=== PATIENT | male | born 1940 | race Caucasian/White ===

== ENCOUNTER 2019-04-24 05:29 | Emergency (ER) | payer MEDICARE, BC ==
[~2019-04-24] VITALS: Ht 182.9 cm; Wt 79.4 kg
--- NOTE | 2019-04-24 05:55 | EKG ---
[facility] [address] [place] [address] Test Date: 2019-04-24 Test Time: 05:36:45 Pat Name: GIDEON HARDING Department: Room: Gender: M Restaurant Crew Member: : 1940 Requested By: SURINDER MARTINEZ Order Number: [id number] Reading MD: Measurements Intervals [place] Rate: 68 P: 56 NM: 194 QRS: 2 QRSD: 90 T: 67 QT: 396 QTc: 425 Interpretive Statements SINUS RHYTHM LOW LIMB LEAD VOLTAGE QRS(T) CONTOUR ABNORMALITY CONSIDER ANTEROSEPTAL MYOCARDIAL DAMAGE POSSIBLY ABNORMAL ECG No previous ECG available for comparison
--- NOTE | 2019-04-24 06:01 | PHYS DOC ---
Past Medical History Past Medical History: A-Fib, CAD, COPD, High Cholesterol, Heart Disease (SURINDER MARTINEZ DO) Past Surgical History: Coronary Bypass Surgery, Other Additional Past Surgical Histo: Cardiac Stents (SURINDER MARTINEZ DO) Alcohol Use: None Drug Use: None (SURINDER MARTINEZ DO) Adult General Chief Complaint Chief Complaint: SYNCOPE HPI HPI Patient is a 79 year of are consistent with atrial fibrillation, CAD, hypertension, recurrent syncope with loop recorder in place who presents with syncopal episode 1 hour prior to ED arrival. Patient states he was standing to use the bathroom when he felt lightheaded and weak. Patient attempted to lower himself to the ground when his heard a loud noise coming from the bathroom. Patient does not recall losing consciousness and denies injury or pain complaint. He states he feels as though he immediately regained consciousness but continued to feel weak and then crawled to his bedroom. Patient states he was unable to stand due to the weakness and then decided to call 911. Patient denies headache, change in vision, palpitations, shortness of breath, extremity weakness or loss of sensation. Denies nausea vomiting, sweats. No blood in stools or dark tarry stools. Denies straining to use the bathroom. Patient stat es he has had similar episodes and was instructed his negative notcher to come to the ED if he had another syncope episode.[] (SURINDER MARTINEZ DO) Review of Systems Review of Systems review of symptoms as per history of present illness. All other review symptoms are negative. All other systems were reviewed and found to be within normal limits, except as documented in this note. (SURINDER MARTINEZ DO) Current Medications Current Medications Current Medications Medications (Trade) Dose Ordered Sig/Harsh Start Time Stop Time Status Last Admin Dose Admin Sodium Chloride 500 ml @ 500 mls/hr 1X ONCE 04/24/19 07:15 04/24/19 08:14 DC 04/24/19 07:30 500 MLS/HR (CHARLIE MAXWELL MD) Allergies Allergies Allergies Coded Allergies Type Severity Reaction Last Updated Verified No Known Drug Allergies 04/24/19 No (CHARLIE MAXWELL MD) Physical Exam Physical Exam Constitutional: Well developed, well nourished, no acute distress, non-toxic appearance. [] HENT: Normocephalic, atraumatic, bilateral external ears normal, oropharynx moist, no oral exudates, nose normal. [] Eyes: PERRLA, EOMI, conjunctiva normal, no discharge. [] Neck: Normal range of motion, no tenderness, supple, no stridor. [] Cardiovascular: Regular rate and rhythm, murmur appreciated, no edema[] Lungs & Thorax: Bilateral breath sounds clear to auscultation [] Abdomen: Bowel sounds normal, soft, no tenderness, no masses, no pulsatile masses. [] [] Extremities: No tenderness, no edema. [] Neurologic: Alert and oriented X 3, normal motor function, normal sensory function, no focal deficits noted. [] Psychologic: Affect normal, judgement normal, mood normal. [] (SURINDER MARTINEZ DO) Current Patient Data Vital Signs Vital Signs Date Time Temp Pulse Resp B/P (MAP) Pulse Ox O2 Delivery O2 Flow Rate FiO2 04/24/19 07:37 72 18 129/59 (82) 97 Room Air 04/24/19 05:29 98.3 98.3 (CHARLIE MAXWELL MD) Lab Values Laboratory Tests Test 04/24/19 05:35 04/24/19 06:05 White Blood Count 8.4 x10^3/uL (4.0-11.0) Red Blood Count 4.85 x10^6/uL (4.30-5.70) Hemoglobin 14.4 g/dL (13.0-17.5) Hematocrit 42.8 % (39.0-53.0) Mean Corpuscular Volume 88 fL (79-100) Mean Corpuscular Hemoglobin 30 pg (25-35) Mean Corpuscular Hemoglobin Concent 34 g/dL (31-37) Red Cell Distribution Width 14.1 % (11.5-14.5) Platelet Count 282 x10^3/uL (140-400) Neutrophils (%) (Auto) 66 % (31-73) Lymphocytes (%) (Auto) 18 % (24-48) L Monocytes (%) (Auto) 9 % (0-9) Eosinophils (%) (Auto) 6 % (0-3) H Basophils (%) (Auto) 1 % (0-3) Neutrophils # (Auto) 5.5 x10^3/uL (1.8-7.7) Lymphocytes # (Auto) 1.5 x10^3/uL (1.0-4.8) Monocytes # (Auto) 0.8 x10^3/uL (0.0-1.1) Eosinophils # (Auto) 0.5 x10^3/uL (0.0-0.7) Basophils # (Auto) 0.1 x10^3/uL (0.0-0.2) Sodium Level 139 mmol/L (136-145) Potassium Level 4.4 mmol/L (3.5-5.1) Chloride Level 103 mmol/L (98-107) Carbon Dioxide Level 30 mmol/L (21-32) Anion Gap 6 (6-14) Blood Urea Nitrogen 12 mg/dL (8-26) Creatinine 1.1 mg/dL (0.7-1.3) Estimated GFR (Cockcroft-Gault) 64.2 BUN/Creatinine Ratio 11 (6-20) Glucose Level 100 mg/dL (70-99) H Calcium Level 9.2 mg/dL (8.5-10.1) Total Bilirubin 0.7 mg/dL (0.2-1.0) Aspartate Amino Transferase (AST) 28 U/L (15-37) Alanine Aminotransferase (ALT) 33 U/L (16-63) Alkaline Phosphatase 58 U/L (46-116) Troponin I Quantitative < 0.017 ng/mL (0.000-0.055) PL-Otg-T-Type Natriuretic Peptide 508 pg/mL (0-449) H Total Protein 6.3 g/dL (6.4-8.2) L Albumin 3.6 g/dL (3.4-5.0) Albumin/Globulin Ratio 1.3 (1.0-1.7) Urine Collection Type Unknown Urine Color Yellow Urine Clarity Clear Urine pH 6.5 Urine Specific [place] 1.015 Urine Protein Negative mg/dL (NEG-TRACE) Urine Glucose (UA) Negative mg/dL (NEG) Urine Ketones (Stick) Negative mg/dL (NEG) Urine Blood Negative (NEG) Urine Nitrite Negative (NEG) Urine Bilirubin Negative (NEG) Urine Urobilinogen Dipstick 0.2 mg/dL (0.2 mg/dL) Urine Leukocyte Esterase Negative (NEG) Urine RBC 0 /HPF (0-2) Urine WBC 0 /HPF (0-4) Urine Squamous Epithelial Cells Few /LPF Urine Bacteria 0 /HPF (0-FEW) Urine Mucus Mod /LPF Laboratory Tests 04/24/19 05:35 Laboratory Tests 04/24/19 05:35 (CHARLIE MAXWELL MD) EKG EKG [EKG: Normal sinus rhythm, rate 69, no acute ST-T wave changes. QTC 426] (SURINDER MARTINEZ DO) Radiology/Procedures Radiology/Procedures [] (SURINDER MARTINEZ DO) Radiology/Procedures PROCEDURE: CHEST AP ONLY Single view chest dated 04/24/2019. No comparison available. Clinical data indication: Arrhythmia. FINDINGS: Single upright portable exam performed. Heart and mediastinal contours are within normal limits. Patient is status post median sternotomy. There is a monitoring device at the left chest. Lungs are hyperinflated. No consolidation or pleural effusion. No pneumothorax. IMPRESSION: 1. No acute radiographic abnormality. 2. Findings consistent with COPD. (CHARLIE MAXWELL MD) Course & Med Decision Making Course & Med Decision Making Pertinent Labs and Imaging studies reviewed. (See chart for details) [Recurrent syncope with history of arrhythmia. Normal sinus rhythm with stable vital signs on ED. No focal neurologic deficits. Workup in progress. Care will be endorsed to oncoming [facility] at 06:00.] (SURINDER MARTINEZ DO) Course & Med Decision Making 6:45 AM: Patient care assumed at 6 AM shift change. Patient is an 79-year-old male, with history of coronary disease, paroxysmal atrial fibrillation, on Eliquis, as well as other medical problems, who presents to the emergency department for evaluation after syncopal episode. He states he went to go to the restroom, and began feeling lightheaded, like his body was going to lay down. He states he states that he tried to slide himself to the floor, but apparently passed out on his way down, probably experiencing a brief loss of consciousness. He denies any injuries, and denies any pain. He denies any headache or head injury, neck pain, or back pain. He did not experience any palpitations or chest pain. He is symptom-free at this time and feels well. The patient has had numer ous syncopal episodes in the past, and has a loop recorder implanted for evaluation of this. Spoke with the patient's negative notcher, who recommended checking orthostatic vital signs, which were done, as he suspects that a lot of the patient's syncopal episodes are related to orthostasis. We will also interrogate the patient's loop recorder. If this does not show any arrhythmia, the patient is likely safe for discharge home, and this was the recommendation of his negative notcher. 10:00 AM: The patient's condition remained stable. He has been ambulatory, been to the restroom, and feels fine. He is without symptoms, no chest pain. His device was interrogated. He did have an episode of age of fibrillation which began at about 3:20 AM, about an hour before the patient's reported syncopal episode at about 4:35 AM. However, the patient did not have any significant rapid atrial fibrillation, or any bradycardic episodes, per interrogation of his loop recorder. I discussed overnight observation. The patient and his family but the patient would like to go home and continue outpatient follow-up. We discussed return precautions in detail. (CHARLIE MAXWELL MD) Dragon Disclaimer Dragon Disclaimer This electronic medical record was generated, in whole or in part, using a voice recognition dictation system. (SURINDER MARTINEZ DO) Departure Departure Impression: Primary Impression: Syncope Disposition: 01 HOME, SELF-CARE Condition: STABLE Referrals: CARLOS VAN MD (PCP) ANA LILIA BARCLAY MD Patient Instructions: Syncope SURINDER MARTINEZ DO Apr 24, 2019 06:01 CHARLIE MAXWELL MD Apr 24, 2019 06:30
--- NOTE | 2019-04-24 06:06 | RAD ---
Single view chest dated 04/24/2019. No comparison available. Clinical data indication: Arrhythmia. FINDINGS: Single upright portable exam performed. Heart and mediastinal contours are within normal limits. Patient is status post median sternotomy. There is a monitoring device at the left chest. Lungs are hyperinflated. No consolidation or pleural effusion. No pneumothorax. IMPRESSION: 1. No acute radiographic abnormality. 2. Findings consistent with COPD. Electronically signed by: Wan Cohen MD (04/24/2019 6:02 AM) [facility]
[2019-04-24 06:09] LABS: CALCIUM 9.2 mg/dL (8.5-10.1); CREATININE 1.1 mg/dL (0.7-1.3); GFR 64.2; POTASSIUM 4.4 mmol/L (3.5-5.1)
[2019-04-24 06:19] LABS: ALBUMIN 3.6 g/dL (3.4-5.0); ALBUMIN/GLOBULIN RATIO 1.3 (1.0-1.7); TOTAL BILIRUBIN 0.7 mg/dL (0.2-1.0); TOTAL PROTEIN 6.3 g/dL (6.4-8.2)
[2019-04-24 06:32] LABS: BASO # 0.1 x10^3/uL (0.0-0.2); BASO % 1 % (0-3); EOS # 0.5 x10^3/uL (0.0-0.7); EOS % 6 % (0-3); HEMATOCRIT 42.8 % (39.0-53.0); HEMOGLOBIN 14.4 g/dL (13.0-17.5); LYMPH # 1.5 x10^3/uL (1.0-4.8); LYMPH % 18 % (24-48); MEAN CORPUSCULAR HEMOGLOBIN 30 pg (25-35); MEAN CORPUSCULAR HGB CONC 34 g/dL (31-37); MEAN CORPUSCULAR VOLUME 88 fL (79-100); MONO # 0.8 x10^3/uL (0.0-1.1); MONO % 9 % (0-9); NEUT # 5.5 x10^3/uL (1.8-7.7); NEUT % 66 % (31-73); PLATELET COUNT 282 x10^3/uL (140-400); RED BLOOD COUNT 4.85 x10^6/uL (4.30-5.70); RED CELL DISTRIBUTION WIDTH 14.1 % (11.5-14.5); WHITE BLOOD COUNT 8.4 x10^3/uL (4.0-11.0)
[2019-04-24 06:34] LABS: BILIRUBIN,URINE NEGATIVE (NEG); CLARITY,URINE CLEAR; COLOR,URINE YELLOW; NITRITE,URINE NEGATIVE (NEG); PH,URINE 6.5; PROTEIN,URINE NEGATIVE (NEG-TRACE); UROBILINOGEN,URINE 0.2 mg/dL (0.2 mg/dL)
[2019-04-24 06:39] LABS: BACTERIA,URINE 0 /HPF (0-FEW); RBC,URINE 0 /HPF (0-2); SQUAMOUS EPITHELIAL CELL,UR FEW /LPF; WBC,URINE 0 /HPF (0-4)
[2019-04-24] MEDS ORDERED: IV NORMAL SALINE 500ML BAG 500 ML IV ONE (07:15)
[2019-04-24] MEDS ORDERED: METO-239 PO (07:46)
[2019-04-24] MEDS ORDERED: MAGN400T44 PO (07:46)
[2019-04-24] MEDS ORDERED: LACT1TAB20 PO (07:46)
[2019-04-24] MEDS ORDERED: APIX5TAB PO (07:47)
[2019-04-24] MEDS ORDERED: TAMS0.4C97 PO (07:48)
[2019-04-24] MEDS ORDERED: BUDE10.22 IH (07:48)
[2019-04-24] MEDS ORDERED: FINA5TAB4 PO (07:48)
[2019-04-24] MEDS ORDERED: SIMV40TA PO (07:48)
[2019-04-24 09:50] VITALS: BP 132/62
== END 2019-04-24 10:08 | disposition home or self-care (01) ==
LOC: ER 05:29
DX: R55 Syncope and collapse (principal); R42 Dizziness and giddiness; R53.1 Weakness; I11.9 Hypertensive heart disease without heart failure; I48.91 Unspecified atrial fibrillation; I25.10 Atherosclerotic heart disease of native coronary artery without angina pectoris; J44.9 Chronic obstructive pulmonary disease, unspecified; Z95.1 Presence of aortocoronary bypass graft
CPT/HCPCS: 36415; 71045; 80053; 81001; 83880; 84484; 85025; 93005; 99285; J7040

== ENCOUNTER → 2019-06-02 | Outpatient (CLI) | payer MEDICARE, BC ==
[~2019-06-02] MED LIST: APIX5TAB PO; BUDE10.22 IH; FINA5TAB4 PO; LACT1TAB20 PO; MAGN400T44 PO; METO-239 PO; REGADENOSON 0.4 MG/5 ML DISP.SYRIN. IV ONE; SIMV40TA PO; TAMS0.4C97 PO
--- NOTE | 2019-06-02 09:42 | RAD ---
MR#: [id number] Date of Study: 06/02/2019 Ordering Physician: ANA LILIA BARCLAY, Referring Physician: ANA LILIA BARCLAY, Tech: Sin Arthur MBA, RDMS, RVT, RDCS, RTR APPROVED REPORT Patient Location: OUT-PATIENT Indications PAD VELOCITY AND DOPPLER WAVEFORM ANALYSIS RIGHT cm/secWaveformSeverity LEFT cm/secWaveform Severity dCFA 109.0BiphasicdCFA 97.0Biphasic Prof Fem Art. 62.0BiphasicProf Fem Art. 50.0Biphasic Fem Art Prox. 81.0BiphasicFem Art Prox. 299.0Biphasic Fem Art Mid. 57.0BiphasicFem Art Mid. 82.0Biphasic Fem Art Dist. 77.0BiphasicFem Art Dist. 76.0Biphasic Pop Art(Fossa) 52.0BiphasicPop Art(AK) 94.0Biphasic LEATHER SPRAYER Prox. 65.0BiphasicPTA Prox. 53.0Biphasic LEATHER SPRAYER Dist. 66.0BiphasicPTA Dist. 47.0Biphasic Per Art Mid. 51.0BiphasicPer Art Mid. 32.0Biphasic HARPREET Prox. 30.0BiphasicATA Prox. 107.0Biphasic DPA 17BiphasicDPA 44Monophasic Image Findings Grayscale images of the bilateral lower extremity arterial vessels reveals mild diffuse irregularitie s and plaque. No focal high-grade stenosis identified on grayscale images On the right there are mostly biphasic waveforms from the common femoral artery to the popliteal segm ent. No focal velocity acceleration is noted. The below-knee arteries are patent and has normal flow velocities in the posterior tibial and peroneal arteries. The anterior tibial arteries demonstrate pr obable moderate disease extending to the dorsalis pedis level where it appears to be more severe smal l vessel disease On the left there is a focal high-grade stenosis at the level of the proximal SFA of greater than 50% . There is three-vessel runoff below the knee and probable greater than 50% stenosis involving the an terior tibial artery. The peroneal velocities are mildly diminished. Critical Notification Critical Value: No <Conclusion> 1. Probable small vessel disease bilaterally 2. Focal greater than 50% stenosis involving the left SFA. Signed by : Garland Brush, Electronically Approved : 06/02/2019 09:42:06
--- NOTE | 2019-06-02 10:06 | CARD ---
MR#: [id number] Date of Study: 06/02/2019 Ordering Physician: ANA LILIA JOHNSON, Referring Physician: ANA LILIA JOHNSON Tech: Desire Casas RDCS APPROVED REPORT EXAM: Two-dimensional and M-mode echocardiogram with Doppler and color Doppler. Other Information Quality : AverageHR: 60bpm Rhythm : PVC's INDICATION CAD Surgery/Intervention CABG: Date: 1994 2D DIMENSIONS RVDd3.0 (2.9-3.5cm)Left Atrium(2D)3.1 (1.6-4.0cm) IVSd1.2 (0.7-1.1cm)Aortic Root(2D)3.4 (2.0-3.7cm) LVDd4.7 (3.9-5.9cm)LVOT Diameter1.9 (1.8-2.4cm) PWd1.2 (0.7-1.1cm)LVDs3.5 (2.5-4.0cm) FS (%) 25.3 %SV51.1 ml LVEF(%)49.9 (>50%) Aortic Valve AoV Peak Tanner.142.3cm/sAoV VTI31.0cm AO Peak GR.8.1mmHgLVOT Peak Tanner.83.5cm/s AO Mean GR.4mmHgAVA (VMAX)1.61cm2 VIVIANA (VTI)1.60cm2 Mitral Valve MV E Guhtnhir98.9cm/sMV DECEL PLAV305hy MV A Vduhnbta616.8cm/sE/A Ratio0.7 Pulmonary Valve PV Peak Hgxfhtuj377.5cm/s Tricuspid Valve TR P. Tdvjxbqk842ev/sRAP ZEVSPTGA8lyVs TR Peak Gr.64fuVsWCLF04cvXd LEFT VENTRICLE The left ventricle is normal size. There is mild concentric left ventricular hypertrophy. Abnormal se ptal motion probably from post operative state. The Ejection Fraction is 50%. Transmitral Doppler danica w pattern is Grade I-abnormal relaxation pattern. RIGHT VENTRICLE The right ventricle is normal size. There is normal right ventricular wall thickness. The right ventr icular systolic function is normal. ATRIA The left atrium size is normal. The right atrium size is normal. The interatrial septum is intact wit h no evidence for an atrial septal defect or patent foramen ovale as noted on 2-D or Doppler imaging. AORTIC VALVE The aortic valve is mildly calcified. The aortic valve is trileaflet. Doppler and Color Flow revealed no significant aortic regurgitation. There is no significant aortic valvular stenosis. MITRAL VALVE The mitral valve is normal in structure and function. There is no evidence of mitral valve prolapse. There is no mitral valve stenosis. Doppler and Color-flow revealed trace mitral regurgitation. TRICUSPID VALVE The tricuspid valve is normal in structure and function. Doppler and Color Flow revealed trace tricus pid regurgitation. The PA pressure was estimated at 25 mmHg. There is no tricuspid valve prolapse or vegetation. There is no tricuspid valve stenosis. PULMONIC VALVE The pulmonary valve is normal in structure and function. Doppler and Color Flow revealed no pulmonic valvular regurgitation. There is no pulmonic valvular stenosis. GREAT VESSELS The aortic root is normal in size. The ascending aorta is normal in size. The IVC is normal in size a nd collapses >50% with inspiration. PERICARDIAL EFFUSION There is no evidence of significant pericardial effusion. Critical Notification Critical Value: No <Conclusion> Abnormal septal motion probably from post operative state. The Ejection Fraction is 50%. Transmitral Doppler flow pattern is Grade I-abnormal relaxation pattern. Trace mitral regurgitation. Trace tricuspid regurgitation. The PA pressure was estimated at 25 mmHg. There is no evidence of significant pericardial effusion. Signed by : Ana Lilia Johnson, Electronically Approved : 06/02/2019 10:06:09
--- NOTE | 2019-06-02 12:56 | RAD ---
MR#: [id number] Date of Study: 06/02/2019 Ordering Physician: ANA LILIA BARCLAY, Referring Physician: YULIANA OAKES Tech: JC Raymond APPROVED REPORT Test Type: Pharmacological Stress Nurse/Tech: Mica Rashid R.N. Test Indications: cad Cardiac History: cabg 1994, 2 stents, copd, Medications: see ehr Medical History: see ehr Resting ECG: sr Resting Heart Rate: 58 bpm Resting Blood Pressure: 107/56mmHg Pretest Chest Pain: No chest pain Nurse/Tech Notes lungs cta, heart tones regular Consent: The procedure was explained to the patient in lay terms. Informed consent was witnessed. Arsenio eout was entered into Metaps. History and Stress Test performed by JUANA Clayton, CALEB (R) (N) Pharm. Details Pharmacologic stress testing was performed using 0.4mg per 5ml of regadenoson given intravenously ove r 7-10 seconds. Stress Symptoms No chest pain or symptoms. POST EXERCISE Reason for Termination: Infusion complete Target HR: No Max HR: 77 bpm Max Blood Pressure: 138/58mmHg Chest Pain: No. Arrhythmia: Yes. intermitant PACs noted ST Change: No. INTERPRETATION Stress EKG Conclusion: Baseline EKG showed sinus rhythm. No ischemic changes at peak stress. No arr hythmias. Imaging Protocol IMAGE PROTOCOL: Rest Tc-99m/stress Tc-99m 1 day Rest: Stress: Viability: Radiopharm.Tc99m FfzpuryufEw77l Sestamibi Vznk87rYh 31.8mCi Duration 15min. 13min. Img Date 06/02/2019 06/02/2019 Inj-Img Tqmg01jyv. 60min. Rest Admin Site:IV - Left AntecubitalAdministrator:JC Raymond Stress Admin Site: IV - Left AntecubitalAdministrator: JUANA Clayton, ERNESTINAT (R)(N) STRESS DATA End Diast. Vol.125.0mlLVEDV index BSA62.0ml End Syst. Vol.52.0mlLVESV index BSA26.0ml Myocardial Whzg793.0gEject. Hgqzqhgb24.0% Stress Scores Regional WT1.00Summed WT6.00 Regional WM0.00Summed WM9.00 LV Perfusion Scintigraphic images showed small reversible defect involving the anteroapical wall consistent with i schemia Wall Motion Apical wall hypokinesis with ejection fraction calculated at 58%. LV Perf. Quant 17 Seg. SSS9.00 17 Seg. SRS17.00 17 Seg. SDS0.00 Stress Defect Extent (% LAD)34.40Rest Defect Extent (% LAD)29.40Rev. Defect Extent (% LAD)18.10 Stress Defect Extent (% LCX) 17.50Rest Defect Extent (% LCX)31.30Rev. Defect Extent (% LCX)5.00 Stress Defect Extent (% RCA)0.00Rest Defect Extent (% RCA)23.30Rev. Defect Extent (% RCA)0.00 Stress Defect Extent (% MICAH)22.60Rest Defect Extent (% MICAH)28.50Rev. Defect Extent (% MICAH)11.10 Conclusion 1. Regadenoson cardioisotope stress test showed small amount of anteroapical wall ischemia. 2. Apical wall hypokinesis with ejection fraction calculated at 58%. 3. Low to intermediate risk for cardiac events. Signed by : Ana Lilia Barclay, Electronically Approved : 06/02/2019 12:55:36
== END | disposition home or self-care (01) ==
LOC: NM 07:56 → EDUNIT# 09:00
PROVIDERS: ATTEND Internal Medicine Cardiovascular Disease
DX: I35.8 Other nonrheumatic aortic valve disorders (principal); I25.89 Other forms of chronic ischemic heart disease; I70.203 Unspecified atherosclerosis of native arteries of extremities, bilateral legs; I11.9 Hypertensive heart disease without heart failure; I25.10 Atherosclerotic heart disease of native coronary artery without angina pectoris; J44.9 Chronic obstructive pulmonary disease, unspecified; Z95.1 Presence of aortocoronary bypass graft; Z95.5 Presence of coronary angioplasty implant and graft
CPT/HCPCS: 78452; 93017; 93306; 93925; A9500; J2785

== ENCOUNTER 2019-07-01 09:26 | Outpatient (CLI) | payer MEDICARE, BC ==
[~2019-07-01] VITALS: Ht 182.9 cm; Wt 81.6 kg
[2019-07-01] VITALS (11 sets, daily range): BP systolic 117–160; BP diastolic 58–85
[~2019-07-01 09:26] MED LIST changes: -REGADENOSON 0.4 MG/5 ML DISP.SYRIN. IV ONE
[2019-07-01 09:53] LABS: HEMATOCRIT 42.1 % (39.0-53.0); HEMOGLOBIN 13.9 g/dL (13.0-17.5); RED BLOOD COUNT 4.73 x10^6/uL (4.30-5.70); RED CELL DISTRIBUTION WIDTH 13.8 % (11.5-14.5); WHITE BLOOD COUNT 8.2 x10^3/uL (4.0-11.0)
[2019-07-01 09:55] LABS: CALCIUM 8.9 mg/dL (8.5-10.1); CREATININE 1.2 mg/dL (0.7-1.3); GFR 58.1; POTASSIUM 4.2 mmol/L (3.5-5.1)
[2019-07-01 10:02] LABS: PROTHROMBIN TIME PATIENT 12.9 SEC (11.7-14.0)
[2019-07-01] MEDS ORDERED: LEVO50TA PO (10:05)
[2019-07-01] MEDS ORDERED: CLOP75TA PO (10:05)
[2019-07-01] MEDS ORDERED: AMIO200T4 PO (10:05)
[2019-07-01] MEDS ORDERED: MULT-658 PO (10:05)
[2019-07-01] MEDS ORDERED: diphenhydrAMINE 50 MG/ML VIAL IVP ONE (10:30)
[2019-07-01] MEDS ORDERED: FAMOTIDINE 20 MG/2 ML VIAL IVP ONE (10:30)
[2019-07-01] MEDS ORDERED: methylPREDNISolone SOD SUCC PF 125 MG/2 ML VIAL. IV ONE (10:30)
[2019-07-01] MEDS ORDERED: FAMOTIDINE 20 MG/2 ML VIAL ONE (11:09)
[2019-07-01] MEDS ORDERED: diphenhydrAMINE 50 MG/ML VIAL ONE (11:09)
[2019-07-01] MEDS ORDERED: methylPREDNISolone SOD SUCC PF 125 MG/2 ML VIAL. ONE (11:10)
[2019-07-01] MEDS ORDERED: IODIXANOL 320 MG/ML 100 ML VIAL. ONE ×2 (11:27→12:21)
[2019-07-01] MEDS ORDERED: LIDOCAINE 1% Multi-Dose 20 ML VIAL. ONE (11:27)
[2019-07-01] MEDS ORDERED: MIDAZOLAM HCL/PF 2 MG/2 ML VIAL. ONE (11:36)
[2019-07-01] MEDS ORDERED: fentaNYL PF VIAL 100 MCG/2 ML VIAL ONE (11:36)
[2019-07-01] MEDS ORDERED: LIDOCAINE 1% Multi-Dose 20 ML VIAL. INJ ONE (12:00)
[2019-07-01] MEDS ORDERED: CONTRAST GIVEN. MC PRN (12:00)
[2019-07-01] MEDS ORDERED: IODIXANOL 320 MG/ML 100 ML VIAL. IART ONE (12:00)
[2019-07-01] MEDS ORDERED: MIDAZOLAM HCL/PF 2 MG/2 ML VIAL. IV ONE (12:00)
[2019-07-01] MEDS ORDERED: fentaNYL PF VIAL 100 MCG/2 ML VIAL IV ONE (12:00)
[2019-07-01] MEDS ORDERED: IV 1/2 NORMAL SALINE 1,000 ML IV SCH (13:49)
--- NOTE | 2019-07-01 13:49 | PDOC ---
MODERATE SEDATION ASSESSMENT RISKS/ALTERNATIVES Risks/Alternatives Risks and alternatives of this type of sedation and procedure discussed with: RISK/ALTERNATIVES: Patient H & P ON CHART H & P H & P on chart and reviewed for co-morbid conditions and appropriate labs. H&P ON CHART: Yes STATUS PREG STATUS ASSESSED: N/A MEDS/ALLERGIES REVIEWED Meds/Allergies Reviewed Medications and Allergies including time and route of recently administered narcotics and sedatives. MEDS/ALLERGIES REVIEWED: Yes ASA RATING ASA RATING: III AIRWAY ASSESSMENT Airway Assessment Airway patency, oral function limitations, presence of caps, crowns, dentures, partials, and ability to extend neck assessed. AIRWAY ASSESSMENT: Yes MALLAMPATI SCORE MALLAMPATI SCORE: II PRE-SEDATION ASSESSMENT PRE-SEDATION ASSESSMENT: Yes ANA LILIA BARCLAY MD Jul 01, 2019 13:49
[2019-07-01] MEDS ORDERED: NITROGLYCERIN SUBLINGUAL 0.4 MG BOTTLE OF 25. SL PRN (14:00)
--- NOTE | 2019-07-01 15:07 | CARD ---
MR#: [id number] Date of Study: 07/01/2019 Ordering Physician: ANA LILIA BARCLAY, Referring Physician: ANA LILIA BARCLAY Tech: TAYLOR MOREJON APPROVED REPORT Technologist: TAYLOR MOREJON Nurse: Joycelyn Rios RN Procedure(s) performed: Left heart catheterization, selective coronary angiography, selective angiogr aphy of the bypass grafts FL TIME: 23.4 MINS DOSE: 77.1 GY/CM2 CONTRAST: 226 ML MODERATE SEDATION: 60 MINS INDICATION The indication(s) include : Coronary artery disease, positive stress test. CS Clinical Frailty Scale [facility] Clinical Frailty Scale: Mildly Frail Heart Failure Heart Failure: No PROCEDURE NARRATIVE After explaining the risks, benefits and alternative options, informed consent was obtained from kaitlyn ent. Patient was brought to the cardiac Transitions Manager Rn and his right groin was prepped and draped in the us ual fashion. 20 mL of 2% lidocaine was infiltrated into the skin and subcutaneous tissues for local a nesthesia. Arterial access was obtained in the right common femoral artery and a 6 Bahamian sheath was inserted. 6 Bahamian JR4 catheter was used to perform selective angiography of the right coronary arter y, saphenous vein graft to RCA, saphenous vein graft to diagonal, sequential saphenous vein graft to the third and fourth obtuse marginal branches of left circumflex artery. 6 Bahamian IM catheter was use d to perform selective angiography of the left internal mammary artery graft to the left anterior zafar cending artery. After initial unsuccessful attempts at engaging the left main cornea artery with 6 Fr ench JL4, 6 Bahamian multipurpose catheters, subselective angiography was performed using 6 Bahamian AL 0 .75 guide catheter. LVEDP and transaortic gradients were measured. Left ventriculography was not perf ormed due to the contrast load used during the procedure. Patient tolerated the procedure well. Hemos tasis was achieved using mynx closure device. There were no immediate complications. FINDINGS A. Hemodynamics: Left ventricle end-diastolic pressure 15 mmHg. No pullback gradient across the aort ic valve. B. Coronary and bypass graft angiography: 1. The left main coronary artery arose from the left sinus of Valsalva, gave rise to the left anteri or descending and left circumflex arteries and showed 90% stenosis. 2. The left anterior descending artery appeared to be occluded proximally. 3. The left circumflex arteries 100% occluded proximally. 4. The right coronary artery is 100% occluded proximally. There is distal reconstitution from left t o right collaterals arising from the left circumflex artery. 5. The left internal mammary artery graft to the left anterior descending artery is widely patent. T here is a patent stent noted in the distal segment extending into the mid-distal portion of the nativ e left anterior descending artery. The very apical segment of LAD showed 90% stenosis. 6. The saphenous vein graft to the diagonal branch was widely patent. 7. The sequential saphenous vein graft to the third and fourth obtuse marginal branches of left circ umflex artery was widely patent. The first and second obtuse marginal branches of left circumflex art jose m can be visualized by retrograde flow. LCX showed 70-80% stenosis just beyond take off of OM2. 8. The saphenous vein graft to the right coronary artery is 100% occluded proximally, described in p rior cardiac catheterization. Conclusion Coronary artery disease s/p CABG with patent GUARDADO to LAD with patent previously placed stent extendin g from distal portion of GUARDADO to mid to distal portion of LAD, patent saphenous vein graft to the anny gonal branch, patent sequential saphenous vein graft to the third and fourth obtuse marginal branches of left circumflex artery. The saphenous vein graft to the right coronary artery is occluded proxima lly, described in prior cardiac catheterizations. No lesions needing intervention were noted. Recommendations Medical Therapy Signed by : Ana Lilia Barclay, Electronically Approved : 07/01/2019 15:07:36
--- NOTE | 2019-07-01 15:48 | NUR ---
Discharge Note: [facility] Discharge instructions and discharge home medications reviewed with Patient and a copy given. All questions have been answered and understanding verbalized. The following instructions and handouts were given: moderate sedation,groin site care and mynx closure pamphlet Discontinued lines and drains: Peripheral IV intact. Patient discharged to Home or Self Care withFamily Membervia Wheelchair Patient stood and walked around the CV/OBS area and stated he felt good. Patient's daughter went to get car pulled up in parking lot B.
== END 2019-07-01 15:55 | disposition home or self-care (01) ==
LOC: CCL 09:26
PROVIDERS: ATTEND Internal Medicine Cardiovascular Disease
DX: I25.10 Atherosclerotic heart disease of native coronary artery without angina pectoris (principal); G47.33 Obstructive sleep apnea (adult) (pediatric); E78.5 Hyperlipidemia, unspecified; I44.7 Left bundle-branch block, unspecified; Z95.0 Presence of cardiac pacemaker; Z87.891 Personal history of nicotine dependence; Z88.8 Allergy status to other drugs, medicaments and biological substances
CPT/HCPCS: 36415; 80048; 85027; 85610; 93459; 99152; 99153; C1713; C1769; C1887; C1892; J1200; J1644; J2250; J2930; J3010; J3490; Q9967; G0269

== ENCOUNTER → 2020-09-29 | Outpatient (CLI) | payer MEDICARE, BC ==
[2019-07-01 15:30] VITALS: BP 121/63
[~2020-09-29] MED LIST changes: +AMIO200T6 PO; +CLOP75TA PO; +LEVO50TA PO; +MULT-658 PO; +REGADENOSON 0.4 MG/5 ML DISP.SYRIN. IV ONE
--- NOTE | 2020-09-29 16:02 | CARD ---
MR#: [id number] Date of Study: 09/29/2020 Ordering Physician: ANA LILIA BARCLAY, Referring Physician: ANA LILIA BARCLAY, Tech: Sophie Hermantanesha APPROVED REPORT EXAM: Two-dimensional and M-mode echocardiogram with Doppler and color Doppler. Other Information Quality : AverageHR: 64bpm INDICATION COPD Cardiac Disease: CAD Surgery/Intervention CABG: Date: 1994 RISK FACTORS Hypertension Hyperlipidemia 2D DIMENSIONS RVDd3.0 (2.9-3.5cm)Left Atrium(2D)3.7 (1.6-4.0cm) IVSd1.0 (0.7-1.1cm)Aortic Root(2D)3.1 (2.0-3.7cm) LVDd5.8 (3.9-5.9cm)LVOT Diameter2.1 (1.8-2.4cm) PWd0.9 (0.7-1.1cm)LVDs4.2 (2.5-4.0cm) FS (%) 26.9 %SV85.7 ml LVEF(%)51.8 (>50%) Aortic Valve AoV Peak Tanner.151.4cm/sAoV VTI36.1cm AO Peak GR.9.2mmHgLVOT Peak Tanner.109.8cm/s LVOT VTI 32.13cmAO Mean GR.5mmHg VIVIANA (VMAX)1.60fm5CPK (VTI)3.18cm2 Mitral Valve MV E Fgjxymme61.3cm/sMV DECEL YIPR310qb MV A Bvgktacy297.3cm/sMV E Mean Gr.2mmHg MV EUQ70vmB/A Ratio0.6 MVA (PHT)2.83cm2 TDI E/Lateral E'6.5E/Medial E'11.0 Pulmonary Valve PV Peak Vrsgepym86.9cm/sPV Peak Grad.3mmHg Tricuspid Valve TR P. Asyagelu094cd/sTR Peak Gr.21mmHg Pulmonary Vein S1 Orzztphg56.4cm/sD2 Uvmiwxic32.7cm/s PVa qqnqfsug250iohj LEFT VENTRICLE The left ventricle is normal size. There is mild concentric left ventricular hypertrophy. The left ve ntricular systolic function is normal. The ejection fraction is estimated at 55%. There is normal LV segmental wall motion. Transmitral Doppler flow pattern is Grade I-abnormal relaxation pattern. RIGHT VENTRICLE The right ventricle is normal size. There is normal right ventricular wall thickness. The right ventr icular systolic function is normal. ATRIA The left atrium size is normal. The right atrium size is normal. The interatrial septum is intact wit h no evidence for an atrial septal defect or patent foramen ovale as noted on 2-D or Doppler imaging. AORTIC VALVE The aortic valve is normal in structure and function. Doppler and Color Flow revealed no significant aortic regurgitation. There is no significant aortic valvular stenosis. Calculated aortic valve area is 3.43 cm2 with maximum pressure gradient of 9 mmHg and mean pressure gradient of 5 mmHg. MITRAL VALVE The mitral valve is normal in structure and function. There is no evidence of mitral valve prolapse. There is no mitral valve stenosis. Doppler and Color-flow revealed trace mitral regurgitation. TRICUSPID VALVE The tricuspid valve is normal in structure and function. Doppler and Color Flow revealed trace tricus pid regurgitation with an estimated PAP of 26 mmHg. There is no tricuspid valve stenosis. PULMONIC VALVE The pulmonic valve is not well visualized. Doppler and Color Flow revealed trace pulmonic valvular re gurgitation. GREAT VESSELS The aortic root is normal in size. The IVC is normal in size and collapses >50% with inspiration. PERICARDIAL EFFUSION There is no evidence of significant pericardial effusion. Critical Notification Critical Value: No <Conclusion> The left ventricular systolic function is normal. The ejection fraction is estimated at 55%. There is normal LV segmental wall motion. Transmitral Doppler flow pattern is Grade I-abnormal relaxation pattern. Trace mitral regurgitation. Trace tricuspid regurgitation with an estimated PAP of 26 mmHg. There is no evidence of significant pericardial effusion. Signed by : Ana Lilia Barclay, Electronically Approved : 09/29/2020 16:02:03
--- NOTE | 2020-09-29 17:42 | RAD ---
MR#: [id number] Date of Study: 09/29/2020 Ordering Physician: ANA LILIA BARCLAY, Referring Physician: YULIANA OAKES Tech: RT Ke (R) (N) APPROVED REPORT Test Type: Pharmacological Stress Nurse/Tech: Joycelyn Rios RN Test Indications: CAD Cardiac History: Hypertension,CABG,PTCA,COPD Medications: See Electronic Medical Record Medical History: See Electronic Medical Record Resting ECG: SR with BBB Resting Heart Rate: 65 bpm Resting Blood Pressure: 151/74mmHg Pretest Chest Pain: No chest pain Nurse/Tech Notes S1,S2 and lungs slightly diminished in the bases. Consent: The procedure was explained to the patient in lay terms. Informed consent was witnessed. Arsenio eout was entered into [employer]. History and Stress Test performed by JUANA Clayton, ARRT (R) (N) Pharm. Details Pharmacologic stress testing was performed using 0.4mg per 5ml of regadenoson given intravenously ove r 7-10 seconds. Stress Symptoms No chest pain or symptoms. POST EXERCISE Reason for Termination: Infusion complete Target HR: No Max HR: 85 bpm Max Blood Pressure: 137/61mmHg Blood Pressure response to exercise: Normal blood pressure response during stress. Heart Rate response to exercise: WNL Chest Pain: No. Arrhythmia: Yes. PVC ST Change: No. 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 Nondiagnostic neri es at peak stress. No arrhythmias. Imaging Protocol IMAGE PROTOCOL: Rest Tc-99m/stress Tc-99m 1 day Rest: Stress: Viability: Radiopharm.Tc99m UfgrceoalKq21j Sestamibi Dose10.2mCi 32mCi Duration 15min. 15min. Img Date 09/29/2020 09/29/2020 Inj-Img Zgph22iax. 60min. Rest Admin Site:IV - Right ForearmAdministrator:RT Ke (R)(N) Stress Admin Site: IV - Right ForearmAdministrator: RT Jade (Hawa)(N) STRESS DATA End Diast. Vol.111.0mlAv. Heart Rate90.0bpm End Syst. Vol.35.0mlCO Index BSA0.0L/min Myocardial Ncqs623.0gEject. Dtxmcwfe12.0% Stress Rates Pk. Fill Rate2.98EDV/secLVtime Pk. Fill 156.39msec Pk. Empty Rate3.82ESV/secLVtime Pk. Qpicr434.15msec 1/3 Pk. Fill1.41EDV/sec Stress Scores Regional WT0.00Summed WT3.00 Regional WM0.00Summed WM3.00 LV Perfusion Scintigraphic images showed small fixed defect involving the apical wall consistent with prior myocar dial infarction without any reversibility. No other fixed or reversible defects were seen. Wall Motion Normal left ventricle systolic function with ejection fraction calculated at 65% LV Perf. Quant 17 Seg. SSS8.00 17 Seg. SRS12.00 17 Seg. SDS0.00 Stress Defect Extent (% LAD)29.40Rest Defect Extent (% LAD)28.80Rev. Defect Extent (% LAD)0.00 Stress Defect Extent (% LCX) 16.30Rest Defect Extent (% LCX)17.50Rev. Defect Extent (% LCX)0.00 Stress Defect Extent (% RCA)0.00Rest Defect Extent (% RCA)30.00Rev. Defect Extent (% RCA)0.00 Stress Defect Extent (% MICAH)15.00Rest Defect Extent (% MICAH)27.80Rev. Defect Extent (% MICAH)0.00 Conclusion 1. 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 2. Normal left ventricular systolic function with ejection fraction calculated at 65%. 3. Low risk for cardiac events. Signed by : Ana Lilia Barclay, Electronically Approved : 09/29/2020 17:41:54
== END ==
LOC: ECHO 08:14
PROVIDERS: ATTEND Internal Medicine Cardiovascular Disease
DX: I25.10 Atherosclerotic heart disease of native coronary artery without angina pectoris (principal); I10 Essential (primary) hypertension
CPT/HCPCS: 78452; 93017; 93306; A9500; J2785

== ENCOUNTER → 2021-10-31 | Outpatient (CLI) | payer MEDICARE, BC ==
[2021-01-29 11:38] VITALS: BP 115/58
[~2021-10-31] MED LIST changes: +AMIO200T53 PO; -AMIO200T6 PO; +ASPI-886 PO; +IOHEXOL 300 MG/ML 100ML VIAL. IV ONE; -REGADENOSON 0.4 MG/5 ML DISP.SYRIN. IV ONE; +SENN1TAB99 PO
--- NOTE | 2021-10-31 16:39 | KCIC ---
EXAM: Chest CT with intravenous contrast. HISTORY: Hemoptysis. Chronic cough. TECHNIQUE: Computed tomographic images of the chest were obtained following the administration of int ravenous contrast. Multiplanar reformatting was performed. *One or more of the following individualized dose reduction techniques were utilized for this examina tion: 1. Automated exposure control. 2. Adjustment of the mA and/or kV according to patient size. 3. Use of iterative reconstruction technique. COMPARISON: None. FINDINGS: The heart is normal in size. There is evidence of median sternotomy and coronary artery byp ass grafting. There is calcification of the aortic valve and mitral valve annulus. The aorta is nicholas l in caliber. There is aortic and aortic branch vessel calcified atherosclerotic plaque. No pathologi michael enlarged mediastinal or hilar lymph node is seen. There are few calcified granulomas. There is emphysema. There is no pneumothorax or pleural effusion. There is focal pleural thickening w ith adjacent subpleural bleb formation and architectural distortion along the lateral right lower tho rax, likely due to scarring. There is additional linear scarring within the anterior medial right mid dle lobe and lingula. There is biapical pleural parenchymal scarring. There is no suspicious nodule. There are small benign hepatic cysts. The gallbladder is surgically absent. The pancreas, spleen and adrenal glands are unremarkable. There is colonic diverticulosis. There is moderate colonic stool. Th ere is degenerative change throughout the thoracic spine. There is no acute osseous finding. IMPRESSION: 1. Pulmonary emphysema with multifocal pleural parenchymal scarring, primarily along the lateral righ t mid thorax. 2. No acute pulmonary finding or suspicious pulmonary nodule. Electronically signed by: Domi Quezada MD (10/31/2021 4:37 PM) [id number]
== END ==
LOC: KCIC CT 08:47
PROVIDERS: ATTEND Family Medicine
DX: J43.9 Emphysema, unspecified (principal); I08.0 Rheumatic disorders of both mitral and aortic valves; K57.30 Diverticulosis of large intestine without perforation or abscess without bleeding; I70.0 Atherosclerosis of aorta; J84.10 Pulmonary fibrosis, unspecified; K76.89 Other specified diseases of liver; M47.814 Spondylosis without myelopathy or radiculopathy, thoracic region; Z90.49 Acquired absence of other specified parts of digestive tract; Z95.1 Presence of aortocoronary bypass graft
CPT/HCPCS: 71260; 82565; Q9967

== ENCOUNTER → 2021-11-02 | Outpatient (CLI) | payer MEDICARE, BC ==
[2021-01-29 11:38] VITALS: BP 115/58
[~2021-11-02] MED LIST changes: -IOHEXOL 300 MG/ML 100ML VIAL. IV ONE; +PERFLUTREN PROTEIN-A MICROSPHR 0.22 MG/ML 3 ML VIAL. IV ONE
--- NOTE | 2021-11-03 11:46 | CARD ---
MR#: [id number] Date of Study: 11/02/2021 Ordering Physician: ANA LILIA BARCLAY, Referring Physician: ANA LILIA BARCLAY Tech: Mai Lopez JOHNATHON APPROVED REPORT EXAM: Two-dimensional and M-mode echocardiogram with Doppler and color Doppler. Other Information Quality : Technically LimitedHR: 55bpm Rhythm : NSR INDICATION Cardiac Disease: CAD Echo Enhancing Agent Indication: Endocardial border delineation Agent/Amount Used: Optison 3mL RISK FACTORS Hypertension Hyperlipidemia 2D DIMENSIONS RVDd3.7 (2.9-3.5cm)Left Atrium(2D)4.7 (1.6-4.0cm) IVSd1.1 (0.7-1.1cm)Aortic Root(2D)3.5 (2.0-3.7cm) LVDd5.5 (3.9-5.9cm)LVOT Diameter2.3 (1.8-2.4cm) PWd1.1 (0.7-1.1cm)LVDs3.6 (2.5-4.0cm) FS (%) 33.8 %SV90.7 ml LVEF(%)62.0 (>50%) Aortic Valve AoV Peak Tanner.143.7cm/sAoV VTI35.6cm AO Peak GR.8.3mmHgLVOT Peak Tanner.103.8cm/s AO Mean GR.4mmHgAVA (VMAX)3.03cm2 Mitral Valve MV E Volaspng82.8cm/sMV DECEL KCZV686io MV A Eeuydgwi27.9cm/sE/A Ratio1.1 Pulmonary Valve PV Peak Zyhsnoqw692.9cm/s Tricuspid Valve TR P. Zajfpyzh210sc/sTR Peak Gr.25mmHg LEFT VENTRICLE The left ventricle is normal size. There is borderline to mild concentric left ventricular hypertroph y. The left ventricular systolic function is normal. Estimated ejection fraction 55-60%. Septal wall motion consistent with postoperative state. Transmitral Doppler flow pattern is Grade II-pseudonorma l filling dynamics. RIGHT VENTRICLE The right ventricle is normal size. There is normal right ventricular wall thickness. The right ventr icular systolic function is normal. ATRIA The left atrium size is normal. The right atrium size is normal. The interatrial septum is intact wit h no evidence for an atrial septal defect or patent foramen ovale as noted on 2-D or Doppler imaging. AORTIC VALVE The aortic valve is normal in structure and function. Doppler and Color Flow revealed no significant aortic regurgitation. There is no significant aortic valvular stenosis. MITRAL VALVE The mitral valve is normal in structure and function. There is no evidence of mitral valve prolapse. There is no mitral valve stenosis. Doppler and Color-flow revealed mild mitral regurgitation. TRICUSPID VALVE The tricuspid valve is normal in structure and function. Doppler and Color Flow revealed mild tricusp id regurgitation. Estimated PAP 26-28 mmHg. There is no tricuspid valve stenosis. PULMONIC VALVE The pulmonary valve is normal in structure and function. Doppler and Color Flow revealed mild pulmoni c valvular regurgitation. GREAT VESSELS The aortic root is normal in size. The ascending aorta is normal in size. The IVC is normal in size a nd collapses >50% with inspiration. PERICARDIAL EFFUSION There is no evidence of significant pericardial effusion. Critical Notification Critical Value: No <Conclusion> The left ventricular systolic function is normal. Estimated ejection fraction 55-60%. Septal wall motion consistent with postoperative state. Transmitral Doppler flow pattern is Grade II-pseudonormal filling dynamics. Mild mitral regurgitation. Mild tricuspid regurgitation. Estimated PAP 26-28 mmHg. There is no evidence of significant pericardial effusion. Signed by : Ana Lilia Barclay, Electronically Approved : 11/03/2021 11:45:53
== END ==
LOC: ECHO 09:22
PROVIDERS: ATTEND Internal Medicine Cardiovascular Disease
DX: I08.8 Other rheumatic multiple valve diseases (principal); I25.10 Atherosclerotic heart disease of native coronary artery without angina pectoris
CPT/HCPCS: C8929; Q9956